=== PATIENT | female | born 1960 | race African-American/Black ===

== ENCOUNTER 2022-02-14 16:08 | Emergency (ER) | payer MEDICARE, MEDICAID ==
[~2022-02-14] VITALS: Ht 172.7 cm; Wt 85.0 kg
[2022-02-14 16:53] VITALS: BP 184/116
== END 2022-02-15 01:01 | disposition left against medical advice (07) ==
LOC: ER 16:08
DX: Z53.21 Procedure and treatment not carried out due to patient leaving prior to being seen by health care provider (principal)

== ENCOUNTER 2022-02-15 14:24 | Emergency (ER) | payer OTHER, MEDICAID ==
[~2022-02-15] VITALS: Ht 172.7 cm; Wt 80.0 kg
[2022-02-15 16:31] LABS: BASOPHILS % 0.6 % (0.0-2.0); EOSINOPHILS % 5.6 % (0.0-5.0); HEMATOCRIT. 25.8 % (36.0-48.0); HEMOGLOBIN. 8.6 g/dL (12.0-16.0); LYMPHOCYTES % 14.7 % (20.0-50.0); MEAN CORPUSCULAR HEMOGLOBIN 28.8 pg (28.0-32.0); MEAN CORPUSCULAR VOLUME 86.8 fL (81.0-99.0); MONOCYTES % 10.5 % (2.0-8.0); NEUTROPHILS % 68.6 % (40.0-76.0); PLATELET 124 x1000/uL (130-400); RED BLOOD CELL COUNT 2.98 mill/uL (4.2-5.4); RED CELL DISTRIBUTION WIDTH 16.7 % (11.6-14.6)
[2022-02-15 16:37] LABS: CHLORIDE 103 mEq/L (98-107)
[2022-02-15 23:40] VITALS: BP 168/99
== END 2022-02-15 23:45 | disposition home or self-care (01) ==
LOC: ER 14:51
DX: I21.9 Acute myocardial infarction, unspecified (principal); I10 Essential (primary) hypertension; Z99.2 Dependence on renal dialysis; R53.81 Other malaise; R11.2 Nausea with vomiting, unspecified; R51.9 Headache, unspecified; Z20.822 Contact with and (suspected) exposure to COVID-19
CPT/HCPCS: 36415; 71045; 80053; 83605; 83690; 84484; 85025; 87426; 93005; 99291; C9803

== ENCOUNTER 2022-03-04 05:19 | Inpatient (IN) | payer OTHER, MEDICAID ==
[2022-03-04] VITALS (15 sets, daily range): BP systolic 152–175; BP diastolic 95–111
[~2022-03-04] VITALS: Ht 167.6 cm; Wt 99.8 kg
[2022-03-04 06:26] LABS: BG BASE EXCESS 1.3 mmol/L (-2.0-2.0); BG CARBOXYHEMOGLOBIN 0.3 % (0.5-1.5); BG DEOXYHEMOGLOBIN 2.4 % (0.0-5.0); BG FRACTION INSPIRED OXYGEN 30; BG HCO3 ACT 25.8 mmol/L (22.0-26.0); BG METHEMOGLOBIN 0.2 % (0.0-1.5); BG OXYGEN SATURATION 97.6 % (92.0-98.5); BG OXYHEMOGLOBIN 97.1 % (94.0-97.0); BG PCO2 40.4 mmHg (35.0-45.0); BG PH 7.423 (7.350-7.450); BG PO2 107.4 mmHg (75.0-100.0); BG SAMPLE SITE RIGHT RADIAL; BG TOTAL HEMOGLOBIN 8.5 g/dL (12.0-18.0); BG VENT MODE MASK - BIPAP
[2022-03-04 07:02] LABS: BASOPHILS % 0.4 % (0.0-2.0); EOSINOPHILS % 3.3 % (0.0-5.0); LYMPHOCYTES % 7.5 % (20.0-50.0); MEAN CORPUSCULAR HEMOGLOBIN 28.5 pg (28.0-32.0); MEAN CORPUSCULAR VOLUME 88.2 fL (81.0-99.0); MEAN PLATELET VOLUME 11.7 fl (7.4-10.4); MONOCYTES % 10.1 % (2.0-8.0); NEUTROPHILS % 78.7 % (40.0-76.0); PLATELET 125 x1000/uL (130-400); RED BLOOD CELL COUNT 2.38 mill/uL (4.2-5.4); RED CELL DISTRIBUTION WIDTH 16.2 % (11.6-14.6)
[2022-03-04] MEDS ORDERED: FUROSEMIDE 40MG/4ML VIAL IVP ONE (07:15)
[2022-03-04] MEDS ORDERED: CEFTRIAXONE 1 G PREMIX 50 ML IV ONE (07:15)
[2022-03-04] MEDS ORDERED: ENALAPRIL 2.5MG/2ML VIAL 2ML IV ONE (07:15)
[2022-03-04] MEDS ORDERED: AZITHROMYCIN 500MG/250ML 250 ML IV ONE (07:15)
[2022-03-04] MEDS ORDERED: ENALAPRIL 1.25MG/ML VIAL 1ML IV NR (07:30)
[2022-03-04 07:35] LABS: HEMOGLOBIN. 6.8 g/dL (12.0-16.0)
[2022-03-04] MEDS ORDERED: IPRATROPIUM/ALBUTEROL 0.5-3(2.5)MG/3ML NEB NEB PRN (09:45)
[2022-03-04] MEDS ORDERED: NITROGLYCERIN 0.4MG TABLET SL SL PRN (09:45)
[2022-03-04] MEDS ORDERED: ONDANSETRON HCL 4MG/2ML INJ IV PRN (09:45)
[2022-03-04] MEDS ORDERED: DOCUSATE SODIUM 100MG CAPSULE PO PRN (09:45)
[2022-03-04] MEDS ORDERED: GUAIFENESIN 200MG/10ML SUGAR FREE UDC PO PRN (09:45)
[2022-03-04] MEDS ORDERED: ACETAMINOPHEN 325MG TABLET PO PRN ×2 (09:45)
[2022-03-04] MEDS ORDERED: ZOLPIDEM TARTRATE 5MG TABLET PO PRN (09:45)
[2022-03-04] MEDS ORDERED: MAGNESIUM/ALUMINUM HYDROXIDE/SIMETHICONE 30ML UDC PO PRN (09:45)
[2022-03-04] MEDS ORDERED: AZITHROMYCIN 500MG/250ML 250 ML IV NR (10:25)
[2022-03-04] MEDS: NITROGLYCERIN OINT 1GM/INCH UDPKT TD SCH ×2 (10:45→23:01)
[2022-03-04] MEDS: NIFEDIPINE XL 60MG TAB PO SCH (10:52)
[2022-03-04] MEDS: FAMOTIDINE 20MG TABLET PO SCH (11:00)
[2022-03-04] MEDS: CLONIDINE 0.1MG TABLET PO PRN (12:10)
[2022-03-04] MEDS: SEVELAMER CARBONATE 800 MG TABLET PO SCH ×2 (13:00→17:33)
[2022-03-04] MEDS: HYDRALAZINE HCL 50MG TABLET PO SCH ×2 (14:40→23:00)
[2022-03-04 14:46] LABS: INR 1.2; PROTHROMBIN TIME 12.3 sec (9.6-11.0)
[2022-03-04 20:56] LABS: TOTAL IRON BINDING CAPACITY 235 ug/dL (250-450)
[2022-03-04 21:03] LABS: T4 FREE 1.24 ng/dL (0.76-1.46)
[2022-03-04 21:54] LABS: CHLORIDE 102 mEq/L (98-107)
[2022-03-04 21:59] LABS: FOLIC ACID (FOLATE) SERUM 5.9 ng/mL (>5.38)
[2022-03-04 22:34] LABS: CREATINE KINASE 102 IU/L (26-192); CREATINE KINASE MB FRACTION < 1.0 ng/mL (0.5-3.6)
[2022-03-05] MEDS ORDERED: NIFE90TA60 MT (00:22)
[2022-03-05] MEDS ORDERED: HYDR-4135 MT (00:22)
[2022-03-05] MEDS ORDERED: LIP40 MT (00:22)
[2022-03-05] MEDS ORDERED: FURO80TA3 MT (00:22)
[2022-03-05] MEDS ORDERED: CALC667C MT (00:23)
[2022-03-05 04:00] VITALS: BP 201/110
[2022-03-05 04:30] LABS: CREATINE KINASE 83 IU/L (26-192); CREATINE KINASE MB FRACTION < 1.0 ng/mL (0.5-3.6)
[2022-03-05] MEDS: HYDRALAZINE HCL 50MG TABLET PO SCH (05:04)
[2022-03-05] MEDS: CLONIDINE 0.1MG TABLET PO PRN (05:04)
[2022-03-05] MEDS: NITROGLYCERIN OINT 1GM/INCH UDPKT TD SCH (05:05)
[2022-03-05] MEDS ORDERED: *PATIENT'S OWN MEDICATION STORAGE XX SCH (05:45)
[2022-03-05 06:53] LABS: BASOPHILS % 0.3 % (0.0-2.0); EOSINOPHILS % 1.9 % (0.0-5.0); HEMATOCRIT. 24.9 % (36.0-48.0); HEMOGLOBIN. 8.3 g/dL (12.0-16.0); LYMPHOCYTES % 8.8 % (20.0-50.0); MEAN CORPUSCULAR HEMOGLOBIN 29.1 pg (28.0-32.0); MEAN CORPUSCULAR VOLUME 87.5 fL (81.0-99.0); PLATELET 124 x1000/uL (130-400); RED BLOOD CELL COUNT 2.85 mill/uL (4.2-5.4); RED CELL DISTRIBUTION WIDTH 15.7 % (11.6-14.6)
[2022-03-05 08:00] VITALS: BP 158/95
[2022-03-05] MEDS: SEVELAMER CARBONATE 800 MG TABLET PO SCH (09:07)
[2022-03-05] MEDS: NIFEDIPINE XL 60MG TAB PO SCH (09:08)
[2022-03-05] MEDS: FAMOTIDINE 20MG TABLET PO SCH (09:14)
[2022-03-05 19:26] LABS: CHLORIDE 103 mEq/L (98-107)
[2022-03-05 19:36] LABS: PHOSPHORUS 3.9 mg/dL (2.5-4.9)
[2022-03-05 22:20] LABS: HEPATITIS B SURFACE ANTIGEN NEGATIVE
== END 2022-03-05 10:20 | disposition left against medical advice (07) | DRG 291 ==
LOC: ER 05:19 → 7WST 08:46 → EDBEDREQTM 08:48 → EDBEDREQ 08:48 → EDBEDREQSVC 10:45
PROVIDERS: ADMIT Internal Medicine; ATTEND Internal Medicine
PROC: 30233N1 Transfusion of Nonautologous Red Blood Cells into Peripheral Vein, Percutaneous Approach (ICD-10-PCS; principal; 2022-03-04)
PROC: 5A1D70Z Performance of Urinary Filtration, Intermittent, Less than 6 Hours Per Day (ICD-10-PCS; 2022-03-04)
PROC: 5A09357 Assistance with Respiratory Ventilation, Less than 24 Consecutive Hours, Continuous Positive Airway Pressure (ICD-10-PCS; 2022-03-04)
DX: I13.2 Hypertensive heart and chronic kidney disease with heart failure and with stage 5 chronic kidney disease, or end stage renal disease (principal); J96.01 Acute respiratory failure with hypoxia; N18.6 End stage renal disease; I16.1 Hypertensive emergency; I50.9 Heart failure, unspecified; Z20.822 Contact with and (suspected) exposure to COVID-19; D64.9 Anemia, unspecified; E78.5 Hyperlipidemia, unspecified; Z82.49 Family history of ischemic heart disease and other diseases of the circulatory system; Z99.2 Dependence on renal dialysis
CPT/HCPCS: 36415; 36600; 71045; 80048; 80053; 80061; 82270; 82375; 82550; 82553; 82607; 82728; 82746; 82805; 83036; 83540; 83550; 83735; 84100; 84439; 84443; 84484; 85025; 85044; 86705; 86709; 86803; 86850; 86900; 86920; 87340; 87426; 87804; 90935; 93005; 93970; 94660; 99291; J0456; J0696; J1940; J3490; P9016

== ENCOUNTER 2022-03-08 08:47 | Inpatient (IN) | payer OTHER, MEDICAID ==
[~2022-03-08] VITALS: Ht 170.2 cm; Wt 78.9 kg
[~2022-03-08 08:47] MED LIST: CALC667C MT; FURO80TA3 MT; HYDR-4135 MT; LIP40 MT; NIFE90TA60 MT
[2022-03-08 10:05] LABS: HEMATOCRIT. 37.2 % (36.0-48.0); MEAN CORPUSCULAR HEMOGLOBIN 28.7 pg (28.0-32.0); MEAN CORPUSCULAR VOLUME 88.7 fL (81.0-99.0); MEAN PLATELET VOLUME 11.2 fl (7.4-10.4); PLATELET 204 x1000/uL (130-400); RED BLOOD CELL COUNT 4.19 mill/uL (4.2-5.4); RED CELL DISTRIBUTION WIDTH 15.9 % (11.6-14.6)
[2022-03-08] MEDS ORDERED: HYDRALAZINE 20MG/ML VIAL IV ONE (10:30)
[2022-03-08 10:36] LABS: PLATELET ESTIMATE NORMAL
[2022-03-08] MEDS ORDERED: ONDANSETRON HCL 4MG/2ML INJ IV ONE (12:00)
[2022-03-08] MEDS ORDERED: MORPHINE SULFATE 4 MG/ML CPJ (NOT FOR IM USE) IV ONE (12:00)
[2022-03-08] MEDS ORDERED: NIFEDIPINE XL 90MG TAB PO ONE (12:00)
[2022-03-08 12:44] LABS: CHLORIDE 103 mEq/L (98-107)
[2022-03-08] MEDS ORDERED: LORAZEPAM 0.5MG TABLET PO PRN (15:00)
[2022-03-08] MEDS ORDERED: DOCUSATE SODIUM 100MG CAPSULE PO PRN (15:00)
[2022-03-08] MEDS ORDERED: IPRATROPIUM/ALBUTEROL 0.5-3(2.5)MG/3ML NEB HHN PRN (15:00)
[2022-03-08] MEDS ORDERED: ACETAMINOPHEN 325MG TABLET PO PRN ×2 (15:00)
[2022-03-08] MEDS ORDERED: ONDANSETRON HCL 4MG/2ML INJ IV PRN (15:00)
[2022-03-08] MEDS: ENOXAPARIN 30MG/0.3ML SYR SUBCUT SCH (18:34)
[2022-03-08] MEDS: CLONIDINE 0.1MG TABLET PO PRN (19:48)
[2022-03-08] MEDS: HYDRALAZINE HCL 50MG TABLET PO SCH (20:53)
[2022-03-08] MEDS: ATORVASTATIN CALCIUM 40MG TABLET PO SCH (20:54)
[2022-03-08 21:30] VITALS: BP 149/96
[2022-03-09] VITALS (13 sets, daily range): BP systolic 111–175; BP diastolic 73–102
[2022-03-09 01:05] LABS: CREATINE KINASE 41 IU/L (26-192); CREATINE KINASE MB FRACTION 1.2 ng/mL (0.5-3.6)
[2022-03-09 07:13] LABS: BASOPHILS % 0.2 % (0.0-2.0); EOSINOPHILS % 0.3 % (0.0-5.0); HEMATOCRIT. 28.3 % (36.0-48.0); HEMOGLOBIN. 9.3 g/dL (12.0-16.0); LYMPHOCYTES % 8.2 % (20.0-50.0); MEAN CORPUSCULAR HEMOGLOBIN 28.6 pg (28.0-32.0); MEAN CORPUSCULAR VOLUME 87.1 fL (81.0-99.0); MEAN PLATELET VOLUME 11.1 fl (7.4-10.4); MONOCYTES % 8.5 % (2.0-8.0); NEUTROPHILS % 82.8 % (40.0-76.0); PLATELET 144 x1000/uL (130-400); RED BLOOD CELL COUNT 3.25 mill/uL (4.2-5.4); RED CELL DISTRIBUTION WIDTH 15.9 % (11.6-14.6)
[2022-03-09 07:50] LABS: CREATINE KINASE MB FRACTION 2.1 ng/mL (0.5-3.6)
[2022-03-09] MEDS: NIFEDIPINE XL 90MG TAB PO SCH (08:10)
[2022-03-09] MEDS: HYDRALAZINE HCL 50MG TABLET PO SCH ×2 (08:10→20:25)
[2022-03-09 13:18] LABS: HEPATITIS B SURFACE ANTIGEN NEGATIVE
[2022-03-09 15:57] LABS: CREATINE KINASE MB FRACTION 1.3 ng/mL (0.5-3.6)
[2022-03-09] MEDS: CALCIUM ACETATE 667MG CAPSULE PO SCH (17:12)
[2022-03-09] MEDS: CLONIDINE 0.1MG TABLET PO PRN (17:12)
[2022-03-09] MEDS: ENOXAPARIN 30MG/0.3ML SYR SUBCUT SCH (17:13)
[2022-03-09] MEDS: FAMOTIDINE 20MG TABLET PO SCH (18:53)
[2022-03-09] MEDS: ATORVASTATIN CALCIUM 40MG TABLET PO SCH (20:25)
[2022-03-09] MEDS ORDERED: FAMOTIDINE 20MG TABLET PO SCH (21:00)
[2022-03-10] VITALS: BP 114/75
[2022-03-10 04:00] VITALS: BP 134/91
[2022-03-10 08:00] VITALS: BP 131/79
[2022-03-10 08:31] LABS: BASOPHILS % 0.3 % (0.0-2.0); EOSINOPHILS % 1.8 % (0.0-5.0); HEMATOCRIT. 26.1 % (36.0-48.0); HEMOGLOBIN. 8.6 g/dL (12.0-16.0); LYMPHOCYTES % 10.1 % (20.0-50.0); MEAN CORPUSCULAR HEMOGLOBIN 28.9 pg (28.0-32.0); MEAN CORPUSCULAR VOLUME 87.7 fL (81.0-99.0); MEAN PLATELET VOLUME 10.5 fl (7.4-10.4); MONOCYTES % 10.5 % (2.0-8.0); NEUTROPHILS % 77.3 % (40.0-76.0); PLATELET 132 x1000/uL (130-400); RED BLOOD CELL COUNT 2.98 mill/uL (4.2-5.4); RED CELL DISTRIBUTION WIDTH 15.6 % (11.6-14.6)
[2022-03-10] MEDS: CALCIUM ACETATE 667MG CAPSULE PO SCH (09:27)
[2022-03-10] MEDS: HYDRALAZINE HCL 50MG TABLET PO SCH ×2 (09:28→20:08)
[2022-03-10] MEDS: NIFEDIPINE XL 90MG TAB PO SCH (09:28)
[2022-03-10 16:00] VITALS: BP 126/76
[2022-03-10 17:20] LABS: TOTAL IRON BINDING CAPACITY 159 ug/dL (250-450)
[2022-03-10] MEDS: FAMOTIDINE 20MG TABLET PO SCH (17:31)
[2022-03-10 17:52] LABS: VITAMIN B12 SERUM 562 pg/mL (211-911)
[2022-03-10 18:34] LABS: FERRITIN 1060 ng/mL (10-291)
[2022-03-10 20:00] VITALS: BP 141/81
[2022-03-10] MEDS: ATORVASTATIN CALCIUM 40MG TABLET PO SCH (20:09)
[2022-03-11] VITALS (19 sets, daily range): BP systolic 122–175; BP diastolic 67–105
[2022-03-11] MEDS: HYDRALAZINE HCL 50MG TABLET PO SCH ×3 (05:33→20:14)
[2022-03-11] MEDS: NIFEDIPINE XL 90MG TAB PO SCH (08:29)
[2022-03-11] MEDS: CALCIUM ACETATE 667MG CAPSULE PO SCH (08:29)
[2022-03-11 12:47] LABS: BASOPHILS % 0.3 % (0.0-2.0); EOSINOPHILS % 2.7 % (0.0-5.0); HEMATOCRIT. 24.7 % (36.0-48.0); HEMOGLOBIN. 8.1 g/dL (12.0-16.0); LYMPHOCYTES % 10.5 % (20.0-50.0); MEAN CORPUSCULAR HEMOGLOBIN 28.7 pg (28.0-32.0); MEAN CORPUSCULAR VOLUME 87.3 fL (81.0-99.0); MEAN PLATELET VOLUME 10.9 fl (7.4-10.4); MONOCYTES % 9.7 % (2.0-8.0); NEUTROPHILS % 76.8 % (40.0-76.0); PLATELET 121 x1000/uL (130-400); RED BLOOD CELL COUNT 2.84 mill/uL (4.2-5.4); RED CELL DISTRIBUTION WIDTH 15.5 % (11.6-14.6)
[2022-03-11] MEDS: FAMOTIDINE 20MG TABLET PO SCH (17:52)
[2022-03-11] MEDS: ATORVASTATIN CALCIUM 40MG TABLET PO SCH (20:13)
[2022-03-12] VITALS: BP 147/96
[2022-03-12 04:00] VITALS: BP 144/82
[2022-03-12] MEDS: HYDRALAZINE HCL 50MG TABLET PO SCH ×3 (05:38→21:56)
[2022-03-12 08:00] VITALS: BP 141/90
[2022-03-12] MEDS: NIFEDIPINE XL 90MG TAB PO SCH (08:36)
[2022-03-12] MEDS: CALCIUM ACETATE 667MG CAPSULE PO SCH (08:36)
[2022-03-12 12:00] VITALS: BP 136/87
[2022-03-12 16:00] VITALS: BP 151/92
[2022-03-12 16:34] LABS: BASOPHILS % 0.5 % (0.0-2.0); EOSINOPHILS % 4.4 % (0.0-5.0); HEMATOCRIT. 23.3 % (36.0-48.0); HEMOGLOBIN. 7.7 g/dL (12.0-16.0); LYMPHOCYTES % 14.2 % (20.0-50.0); MEAN CORPUSCULAR HEMOGLOBIN 28.9 pg (28.0-32.0); MEAN CORPUSCULAR VOLUME 87.4 fL (81.0-99.0); MEAN PLATELET VOLUME 11.1 fl (7.4-10.4); MONOCYTES % 11.4 % (2.0-8.0); NEUTROPHILS % 69.5 % (40.0-76.0); PLATELET 134 x1000/uL (130-400); RED BLOOD CELL COUNT 2.67 mill/uL (4.2-5.4); RED CELL DISTRIBUTION WIDTH 15.1 % (11.6-14.6)
[2022-03-12] MEDS: FAMOTIDINE 20MG TABLET PO SCH (17:18)
[2022-03-12 20:00] VITALS: BP 150/91
[2022-03-12] MEDS: ATORVASTATIN CALCIUM 40MG TABLET PO SCH (21:56)
[2022-03-13] VITALS (14 sets, daily range): BP systolic 119–188; BP diastolic 82–102
[2022-03-13] MEDS: HYDRALAZINE HCL 50MG TABLET PO SCH ×3 (06:00→21:31)
[2022-03-13 07:04] LABS: BASOPHILS % 0.5 % (0.0-2.0); EOSINOPHILS % 4.7 % (0.0-5.0); HEMATOCRIT. 22.5 % (36.0-48.0); HEMOGLOBIN. 7.4 g/dL (12.0-16.0); LYMPHOCYTES % 18.2 % (20.0-50.0); MEAN CORPUSCULAR HEMOGLOBIN 28.7 pg (28.0-32.0); MEAN CORPUSCULAR VOLUME 87.3 fL (81.0-99.0); MEAN PLATELET VOLUME 11.2 fl (7.4-10.4); MONOCYTES % 11.6 % (2.0-8.0); PLATELET 142 x1000/uL (130-400); RED BLOOD CELL COUNT 2.58 mill/uL (4.2-5.4); RED CELL DISTRIBUTION WIDTH 15.6 % (11.6-14.6)
[2022-03-13] MEDS: NIFEDIPINE XL 90MG TAB PO SCH (08:52)
[2022-03-13] MEDS: CALCIUM ACETATE 667MG CAPSULE PO SCH (08:52)
[2022-03-13] MEDS: FOLIC ACID 1MG TABLET PO SCH (14:48)
[2022-03-13] MEDS: FAMOTIDINE 20MG TABLET PO SCH (18:03)
[2022-03-13] MEDS: ATORVASTATIN CALCIUM 40MG TABLET PO SCH (21:22)
[2022-03-13] MEDS: EPOETIN ALFA-EPBX 4,000 UNIT/ML VIAL SUBCUT SCH (21:22)
[2022-03-13] MEDS: IRON SUCROSE COMPLEX 100 MG/5 ML ML IV SCH (21:30)
[2022-03-14] VITALS (7 sets, daily range): BP systolic 153–206; BP diastolic 91–129
[2022-03-14] MEDS: HYDRALAZINE HCL 50MG TABLET PO SCH ×3 (07:03→22:00)
[2022-03-14] MEDS: CALCIUM ACETATE 667MG CAPSULE PO SCH (09:59)
[2022-03-14] MEDS: FOLIC ACID 1MG TABLET PO SCH (09:59)
[2022-03-14] MEDS: NIFEDIPINE XL 90MG TAB PO SCH (10:00)
[2022-03-14] MEDS: CLONIDINE 0.1MG TABLET PO PRN (14:05)
[2022-03-14 16:27] LABS: BASOPHILS % 0.4 % (0.0-2.0); EOSINOPHILS % 4.3 % (0.0-5.0); HEMATOCRIT. 26.2 % (36.0-48.0); HEMOGLOBIN. 8.6 g/dL (12.0-16.0); LYMPHOCYTES % 11.2 % (20.0-50.0); MEAN CORPUSCULAR HEMOGLOBIN 28.9 pg (28.0-32.0); MEAN CORPUSCULAR VOLUME 88.2 fL (81.0-99.0); MEAN PLATELET VOLUME 10.9 fl (7.4-10.4); MONOCYTES % 9.9 % (2.0-8.0); NEUTROPHILS % 74.2 % (40.0-76.0); PLATELET 172 x1000/uL (130-400); RED BLOOD CELL COUNT 2.97 mill/uL (4.2-5.4); RED CELL DISTRIBUTION WIDTH 15.3 % (11.6-14.6)
[2022-03-14] MEDS: FAMOTIDINE 20MG TABLET PO SCH (18:16)
[2022-03-14] MEDS: ATORVASTATIN CALCIUM 40MG TABLET PO SCH (21:00)
[2022-03-14] MEDS: IRON SUCROSE COMPLEX 100 MG/5 ML ML IV SCH (22:00)
[2022-03-15] VITALS: BP 154/97
[2022-03-15 04:00] VITALS: BP 160/105
[2022-03-15] MEDS: HYDRALAZINE HCL 50MG TABLET PO SCH ×3 (06:00→21:53)
[2022-03-15 08:00] VITALS: BP 179/124
[2022-03-15 11:28] LABS: BASOPHILS % 0.5 % (0.0-2.0); EOSINOPHILS % 3.3 % (0.0-5.0); HEMATOCRIT. 23.8 % (36.0-48.0); HEMOGLOBIN. 7.8 g/dL (12.0-16.0); LYMPHOCYTES % 11.3 % (20.0-50.0); MEAN CORPUSCULAR HEMOGLOBIN 28.8 pg (28.0-32.0); MEAN PLATELET VOLUME 11.3 fl (7.4-10.4); NEUTROPHILS % 75.9 % (40.0-76.0); PLATELET 153 x1000/uL (130-400); RED BLOOD CELL COUNT 2.71 mill/uL (4.2-5.4); RED CELL DISTRIBUTION WIDTH 15.5 % (11.6-14.6)
[2022-03-15 11:33] LABS: CHLORIDE 107 mEq/L (98-107)
[2022-03-15] MEDS: CALCIUM ACETATE 667MG CAPSULE PO SCH (11:55)
[2022-03-15] MEDS: FOLIC ACID 1MG TABLET PO SCH (11:55)
[2022-03-15] MEDS: NIFEDIPINE XL 90MG TAB PO SCH (11:56)
[2022-03-15 16:00] VITALS: BP 165/111
[2022-03-15] MEDS: FAMOTIDINE 20MG TABLET PO SCH (18:15)
[2022-03-15 20:00] VITALS: BP 171/88
[2022-03-15] MEDS: IRON SUCROSE COMPLEX 100 MG/5 ML ML IV SCH (21:52)
[2022-03-15] MEDS: ATORVASTATIN CALCIUM 40MG TABLET PO SCH (21:53)
[2022-03-16] VITALS (17 sets, daily range): BP systolic 120–192; BP diastolic 81–127
[2022-03-16] MEDS: HYDRALAZINE HCL 50MG TABLET PO SCH ×3 (06:24→22:29)
[2022-03-16] MEDS: FOLIC ACID 1MG TABLET PO SCH (09:17)
[2022-03-16] MEDS: CALCIUM ACETATE 667MG CAPSULE PO SCH (09:17)
[2022-03-16] MEDS: NIFEDIPINE XL 90MG TAB PO SCH (09:17)
[2022-03-16 09:32] LABS: HEMOGLOBIN 8.5 g/dL (12.0-16.0); MEAN CORPUSCULAR HEMOGLOBIN 28.5 pg (28.0-32.0); MEAN CORPUSCULAR VOLUME 87.3 fL (81.0-99.0); PLATELET 176 x1000/uL (130-400); RED BLOOD CELL COUNT 2.98 mill/uL (4.2-5.4); RED CELL DISTRIBUTION WIDTH 15.1 % (11.6-14.6)
[2022-03-16 09:43] LABS: CHLORIDE 105 mEq/L (98-107)
[2022-03-16] MEDS: FAMOTIDINE 20MG TABLET PO SCH (18:14)
[2022-03-16] MEDS: EPOETIN ALFA-EPBX 4,000 UNIT/ML VIAL SUBCUT SCH (21:00)
[2022-03-16] MEDS: IRON SUCROSE COMPLEX 100 MG/5 ML ML IV SCH (22:00)
[2022-03-16] MEDS: ATORVASTATIN CALCIUM 40MG TABLET PO SCH (22:29)
[2022-03-17 04:00] VITALS: BP 149/93
[2022-03-17] MEDS: HYDRALAZINE HCL 50MG TABLET PO SCH ×3 (06:25→22:00)
[2022-03-17 06:43] LABS: BASOPHILS % 0.5 % (0.0-2.0); EOSINOPHILS % 3.8 % (0.0-5.0); HEMOGLOBIN. 7.9 g/dL (12.0-16.0); LYMPHOCYTES % 15.1 % (20.0-50.0); MEAN CORPUSCULAR HEMOGLOBIN 28.9 pg (28.0-32.0); MEAN PLATELET VOLUME 11.3 fl (7.4-10.4); MONOCYTES % 12.1 % (2.0-8.0); NEUTROPHILS % 68.5 % (40.0-76.0); PLATELET 165 x1000/uL (130-400); RED BLOOD CELL COUNT 2.72 mill/uL (4.2-5.4); RED CELL DISTRIBUTION WIDTH 15.2 % (11.6-14.6)
[2022-03-17 08:00] VITALS: BP 155/91
[2022-03-17] MEDS: FOLIC ACID 1MG TABLET PO SCH (08:57)
[2022-03-17] MEDS: CALCIUM ACETATE 667MG CAPSULE PO SCH (08:57)
[2022-03-17] MEDS: NIFEDIPINE XL 90MG TAB PO SCH (08:59)
[2022-03-17 12:00] VITALS: BP 172/111
[2022-03-17 16:00] VITALS: BP 158/101
[2022-03-17] MEDS: FAMOTIDINE 20MG TABLET PO SCH (18:05)
[2022-03-17 20:00] VITALS: BP 118/76
[2022-03-17] MEDS: IRON SUCROSE COMPLEX 100 MG/5 ML ML IV SCH (22:00)
[2022-03-17] MEDS: ATORVASTATIN CALCIUM 40MG TABLET PO SCH (22:12)
[2022-03-18] VITALS (11 sets, daily range): BP systolic 128–166; BP diastolic 69–110
[2022-03-18] MEDS: HYDRALAZINE HCL 50MG TABLET PO SCH ×3 (05:59→21:45)
[2022-03-18 07:39] LABS: BASOPHILS % 0.3 % (0.0-2.0); EOSINOPHILS % 3.6 % (0.0-5.0); HEMATOCRIT. 23.4 % (36.0-48.0); HEMOGLOBIN. 7.9 g/dL (12.0-16.0); LYMPHOCYTES % 18.1 % (20.0-50.0); MEAN CORPUSCULAR HEMOGLOBIN 29.3 pg (28.0-32.0); MEAN CORPUSCULAR VOLUME 87.2 fL (81.0-99.0); MEAN PLATELET VOLUME 10.9 fl (7.4-10.4); MONOCYTES % 14.6 % (2.0-8.0); NEUTROPHILS % 63.4 % (40.0-76.0); PLATELET 153 x1000/uL (130-400); RED BLOOD CELL COUNT 2.69 mill/uL (4.2-5.4); RED CELL DISTRIBUTION WIDTH 14.9 % (11.6-14.6)
[2022-03-18] MEDS: NIFEDIPINE XL 90MG TAB PO SCH (09:00)
[2022-03-18] MEDS: CALCIUM ACETATE 667MG CAPSULE PO SCH (09:52)
[2022-03-18] MEDS: FOLIC ACID 1MG TABLET PO SCH (09:52)
[2022-03-18] MEDS: FAMOTIDINE 20MG TABLET PO SCH (18:15)
[2022-03-18] MEDS: EPOETIN ALFA-EPBX 4,000 UNIT/ML VIAL SUBCUT SCH ×2 (21:45→21:55)
[2022-03-18] MEDS: ATORVASTATIN CALCIUM 40MG TABLET PO SCH (21:45)
[2022-03-19 00:23] VITALS: BP 141/87
[2022-03-19 04:00] VITALS: BP 156/98
[2022-03-19] MEDS: HYDRALAZINE HCL 50MG TABLET PO SCH ×4 (05:35→21:10)
[2022-03-19] MEDS: FOLIC ACID 1MG TABLET PO SCH ×2 (09:00→12:41)
[2022-03-19] MEDS: CALCIUM ACETATE 667MG CAPSULE PO SCH ×2 (09:00→12:41)
[2022-03-19] MEDS: NIFEDIPINE XL 90MG TAB PO SCH ×2 (09:00→12:51)
[2022-03-19 12:51] VITALS: BP 148/89
[2022-03-19] MEDS: FAMOTIDINE 20MG TABLET PO SCH (17:56)
[2022-03-19 20:00] VITALS: BP 148/84
[2022-03-19] MEDS: ATORVASTATIN CALCIUM 40MG TABLET PO SCH (21:00)
[2022-03-19 21:06] LABS: BASOPHILS % 0.7 % (0.0-2.0); EOSINOPHILS % 3.1 % (0.0-5.0); HEMATOCRIT. 27.6 % (36.0-48.0); LYMPHOCYTES % 17.5 % (20.0-50.0); MEAN CORPUSCULAR HEMOGLOBIN 28.6 pg (28.0-32.0); MEAN CORPUSCULAR VOLUME 87.6 fL (81.0-99.0); MEAN PLATELET VOLUME 11.1 fl (7.4-10.4); MONOCYTES % 11.2 % (2.0-8.0); NEUTROPHILS % 67.5 % (40.0-76.0); PLATELET 226 x1000/uL (130-400); RED BLOOD CELL COUNT 3.15 mill/uL (4.2-5.4); RED CELL DISTRIBUTION WIDTH 15.2 % (11.6-14.6)
[2022-03-20] VITALS (14 sets, daily range): BP systolic 90–147; BP diastolic 54–97
[2022-03-20] MEDS: HYDRALAZINE HCL 50MG TABLET PO SCH (06:00)
[2022-03-20] MEDS: CALCIUM ACETATE 667MG CAPSULE PO SCH (08:41)
[2022-03-20] MEDS: FOLIC ACID 1MG TABLET PO SCH (08:41)
[2022-03-20] MEDS: NIFEDIPINE XL 90MG TAB PO SCH (08:41)
== END 2022-03-20 11:45 | disposition home or self-care (01) | DRG 640 ==
LOC: ER 08:47 → ENRESERV 20:35 → 7WST 22:04
PROVIDERS: ADMIT Internal Medicine Nephrology; ATTEND Internal Medicine
PROC: 5A1D70Z Performance of Urinary Filtration, Intermittent, Less than 6 Hours Per Day (ICD-10-PCS; principal; 2022-03-09)
PROC: 5A1D70Z Performance of Urinary Filtration, Intermittent, Less than 6 Hours Per Day (ICD-10-PCS; 2022-03-11)
PROC: 5A1D70Z Performance of Urinary Filtration, Intermittent, Less than 6 Hours Per Day (ICD-10-PCS; 2022-03-13)
PROC: 5A1D70Z Performance of Urinary Filtration, Intermittent, Less than 6 Hours Per Day (ICD-10-PCS; 2022-03-16)
PROC: 5A1D70Z Performance of Urinary Filtration, Intermittent, Less than 6 Hours Per Day (ICD-10-PCS; 2022-03-18)
PROC: 5A1D70Z Performance of Urinary Filtration, Intermittent, Less than 6 Hours Per Day (ICD-10-PCS; 2022-03-20)
DX: E87.6 Hypokalemia (principal); N18.6 End stage renal disease; E44.0 Moderate protein-calorie malnutrition; I31.39 Other pericardial effusion (noninflammatory); I12.0 Hypertensive chronic kidney disease with stage 5 chronic kidney disease or end stage renal disease; I16.0 Hypertensive urgency; D50.9 Iron deficiency anemia, unspecified; D63.1 Anemia in chronic kidney disease; Z20.822 Contact with and (suspected) exposure to COVID-19; B19.20 Unspecified viral hepatitis C without hepatic coma; E78.5 Hyperlipidemia, unspecified; Z99.2 Dependence on renal dialysis; Z79.899 Other long term (current) drug therapy; Z91.15 Patient's noncompliance with renal dialysis; Z68.27 Body mass index [BMI] 27.0-27.9, adult; Z86.73 Personal history of transient ischemic attack (TIA), and cerebral infarction without residual deficits; Z91.14 Patient's other noncompliance with medication regimen
CPT/HCPCS: 36415; 71045; 74176; 76700; 80048; 80053; 82550; 82553; 82607; 82728; 82746; 83540; 83550; 83605; 83880; 84484; 85025; 85027; 85044; 86705; 86706; 86709; 86803; 87015; 87045; 87177; 87209; 87340; 87426; 87427; 87449; 87804; 89055; 90935; 93005; 93306; 93970; 99285; J0360; J0885; J1650; J2270; J2405

== ENCOUNTER 2024-07-01 04:50 | Emergency (ER) | payer MEDICARE, MEDICAID ==
[~2024-07-01] VITALS: Ht 170.2 cm; Wt 76.0 kg
[~2024-07-01 04:50] MED LIST changes: -HYDR-4135 MT; +HYDR50TA39 MT
[2024-07-01 05:01] VITALS: PULSE 72; RESP 18; O2SAT 100
[2024-07-01 05:07] VITALS: BP 174/101; TEMP 36.8; O2SAT 99
== END 2024-07-01 08:27 | disposition left against medical advice (07) ==
LOC: ER 04:50
DX: R10.30 Lower abdominal pain, unspecified (principal); R19.7 Diarrhea, unspecified; I13.2 Hypertensive heart and chronic kidney disease with heart failure and with stage 5 chronic kidney disease, or end stage renal disease; I50.9 Heart failure, unspecified; N18.6 End stage renal disease; Z79.899 Other long term (current) drug therapy; Z99.2 Dependence on renal dialysis
CPT/HCPCS: 93005; 99282; 99283

== ENCOUNTER 2024-08-18 03:40 | Emergency (ER) | payer MEDICARE, MEDICAID ==
[2024-08-18 05:13] LABS: BASOPHILS % 0.6 % (0.0-2.0); EOSINOPHILS % 4.9 % (0.0-5.0); HEMOGLOBIN. 10.2 g/dL (12.0-16.0); LYMPHOCYTES % 16.2 % (20.0-50.0); MEAN CORPUSCULAR HEMOGLOBIN 29.3 pg (28.0-32.0); MEAN CORPUSCULAR VOLUME 91.6 fL (81.0-99.0); MEAN PLATELET VOLUME 11.7 fl (7.4-10.4); MONOCYTES % 10.4 % (2.0-8.0); NEUTROPHILS % 67.9 % (40.0-76.0); PLATELET 151 x1000/uL (130-400); RED BLOOD CELL COUNT 3.49 mill/uL (4.2-5.4); RED CELL DISTRIBUTION WIDTH 16.1 % (11.6-14.6)
[2024-08-18 05:19] LABS: CHLORIDE 99 mEq/L (98-107); POTASSIUM 5.2 mEq/L (3.5-5.1); SODIUM 139 mEq/L (136-145)
[2024-08-18 05:20] LABS: CALCIUM 7.4 mg/dL (8.7-10.4); CARBON DIOXIDE 20 mEq/L (21-32)
[2024-08-18 05:25] LABS: GLUCOSE 128 mg/dL (70-105); UREA NITROGEN BLOOD 97 mg/dL (9-23)
[2024-08-18 05:27] LABS: ALANINE AMINOTRANSFERASE < 7 IU/L (10-49); ALBUMIN 4.8 g/dL (3.2-4.8); ASPARTATE AMINOTRANSFERASE 13 IU/L (<34)
[2024-08-18 05:28] LABS: BILIRUBIN TOTAL 0.4 mg/dL (0.1-1.0); PROTEIN TOTAL 8.2 g/dL (6.0-8.3)
[2024-08-18 05:34] LABS: CREATININE 14.7 mg/dL (0.6-1.0)
[2024-08-18 06:06] VITALS: BP 115/7; PULSE 100; RESP 20; O2SAT 98
[2024-08-20] MEDS ORDERED: CLON0.3T MT (14:55)
== END 2024-08-18 06:23 | disposition home or self-care (01) ==
LOC: ER 03:40 → EDBEDREQTM 04:55 → CANBEDREQ 06:20 → ER 06:23
DX: I13.2 Hypertensive heart and chronic kidney disease with heart failure and with stage 5 chronic kidney disease, or end stage renal disease (principal); N18.6 End stage renal disease; I50.9 Heart failure, unspecified; F19.90 Other psychoactive substance use, unspecified, uncomplicated; Z79.899 Other long term (current) drug therapy; Z99.2 Dependence on renal dialysis; Z98.890 Other specified postprocedural states
CPT/HCPCS: 36415; 71045; 80053; 85025; 93005; 99284; 99291

== ENCOUNTER 2024-10-01 02:31 | Emergency (ER) | payer MEDICARE, MEDICAID ==
[~2024-10-01] VITALS: Ht 170.2 cm; Wt 75.4 kg
[~2024-10-01 02:31] MED LIST changes: +CLON0.3T MT
[2024-10-01 02:48] VITALS: O2SAT 99
[2024-10-01 03:32] VITALS: BP 187/107; PULSE 89; RESP 18; TEMP 37; O2SAT 99
== END 2024-10-01 06:59 | disposition left against medical advice (07) ==
LOC: ER 02:31
DX: R10.31 Right lower quadrant pain (principal); I11.0 Hypertensive heart disease with heart failure; I50.9 Heart failure, unspecified; Z53.21 Procedure and treatment not carried out due to patient leaving prior to being seen by health care provider; Z98.890 Other specified postprocedural states
CPT/HCPCS: 93005